=== PATIENT | male | born 1975 | race Caucasian/White ===

== ENCOUNTER 2017-10-06 15:06 | Emergency (ER) | payer SELFPAY ==
--- NOTE | 2017-10-06 16:04 | ERPHSYRPT ---
- History of Present Illness Time Seen by Provider: 10/06/17 15:59 Source: patient Exam Limitations: no limitations Patient Subjective Stated Complaint: pt co metal in upper lip today while using a hammer. pt states he used a magant and lip stuck to magant, Triage Nursing Assessment: pt alert, resp easy, skin w/d/p . has puncture wound to right upper lip Physician History: The patient is a 40-year-old male complaining that a piece of metal was dislodged from a hammer this morning at work causing it to strike him in the upper lip, causing a laceration and impalement of the small piece of metal in his upper lip. He went to a [employer] store and applied a magnet to his upper lip to confirm that the metal piece was in his lip. His lip is swollen and tender. His last tetanus vaccination was several years ago. He takes no medicines. Timing/Duration: today Quality: painful Severity: mild Location: face (upper lip) Possible Causes: other (metal ) Allergies/Adverse Reactions: No Known Drug Allergies Allergy (Unverified 10/06/17 15:16) Hx Tetanus, Diphtheria Vaccination/Date Given: Yes Hx Influenza Vaccination/Date Given: No Hx Pneumococcal Vaccination/Date Given: No Immunizations Up to Date: Yes - Review of Systems Constitutional: No Fever, No Chills Eyes: No Symptoms Ears, Nose, & Throat: No Symptoms Respiratory: No Cough, No Dyspnea Cardiac: No Chest Pain, No Edema, No Syncope Abdominal/Gastrointestinal: No Abdominal Pain, No Nausea, No Vomiting, No Diarrhea Genitourinary Symptoms: No Dysuria Musculoskeletal: No Back Pain, No Neck Pain Skin: Other (embedded metal in upper lip.) Neurological: No Dizziness, No Focal Weakness, No Sensory Changes Psychological: No Symptoms Endocrine: No Symptoms Hematologic/Lymphatic: No Symptoms Immunological/Allergic: No Symptoms All Other Systems: Reviewed and Negative - Past Medical History Pertinent Past Medical History: No - Past Surgical History Past Surgical History: Yes Other Surgical History: arm - Social History Smoking Status: Current some day smoker Exposure to second hand smoke: Yes Drug Use: none Patient Lives Alone: No - Nursing Vital Signs Nursing Vital Signs: Initial Vital Signs Pulse Rate 75 10/06/17 16:12 Blood Pressure 116/85 10/06/17 16:12 O2 Sat by Pulse Oximetry 98 10/06/17 16:12 Pain Scale Pain Intensity 3 - Physical Exam General Appearance: no apparent distress, alert Eye Exam: PERRL/EOMI, eyes nml inspection Ears, Nose, Throat Exam: normal ENT inspection, pharynx normal, moist mucous membranes Neck Exam: normal inspection, non-tender, supple, full range of motion Respiratory Exam: normal breath sounds, lungs clear, No respiratory distress Cardiovascular Exam: regular rate/rhythm, normal heart sounds Gastrointestinal/Abdomen Exam: soft, mass, No tenderness Rectal Exam: not done Back Exam: normal inspection, normal range of motion, No CVA tenderness, No vertebral tenderness Extremity Exam: normal inspection, normal range of motion Neurologic Exam: alert, oriented x 3, cooperative, normal mood/affect, sensation nml, No motor deficits Skin Exam: other (small 0.3 cm lac to right side of upper lip; tenderness; swelling.) SpO2 Interpretation: normal Oxygen Delivery: Room Air - Progress Progress: improved Progress Note: 10/06/17 16:23 The steel metal fragment from a hammer was located on the inside of the upper lip just below the surface of the mucosal tissue. It was readily visible as a dark spot that was movable. A magnet easily tugged at the steel through the tissue. Without local anesthetic a small opening was produced in the tissue over the steel fragment with a 10 blade scalpel. A magnet was then used to easily pulled the steel fragment through the incised laceration. The size of the steel fragment was 2.5 x 5 mm. The patient tolerated the procedure well bleeding was minimal. The patient was given a tetanus vaccination. 10/06/17 16:25 Counseled pt/family regarding: diagnosis - Departure Time of Disposition: 16:23 Departure Disposition: Home Clinical Impression: History of retained foreign body fully removed Condition: Stable Critical Care Time: No Referrals: DOCTOR,NO FAMILY [Primary Care Provider] - Additional Instructions: You had a small steel fragment removed from the inside of your upper lip. You were given a tetanus vaccination in the ER. Take Augmentin 875 one tablet 2 times a day for 10 days. Take ibuprofen or Tylenol as needed for pain. Follow- up as needed. Prescriptions: Amoxicillin/Potassium Clav [Augmentin 875-125 Tablet] 875 mg PO BID #20 tablet
[2017-10-06] MEDS ORDERED: Adacel Vial IM ONE ×2 (16:29→16:34)
[2017-10-06 16:48] VITALS: BP 106/62; PULSE 88; O2SAT 99
== END 2017-10-06 16:49 | disposition home or self-care (01) ==
LOC: ED 15:06
PROC: 0CC Mouth and Throat, Extirpation (ICD-10-PCS; principal; 2017-10-06)
DX: S01.521A Laceration with foreign body of lip, initial encounter (principal); W45.8XXA Other foreign body or object entering through skin, initial encounter; W27.8XXA Contact with other nonpowered hand tool, initial encounter; Y93.89 Activity, other specified; Y92.9 Unspecified place or not applicable; Y99.0 Civilian activity done for income or pay
CPT/HCPCS: 10120; 90471; 90715; 96372; 99284

== ENCOUNTER 2021-10-30 21:21 | Emergency (ER) | payer OTHER ==
--- NOTE | 2021-10-30 21:57 | ERPHSYRPT ---
- History of Present Illness Time Seen by Provider: 10/30/21 21:51 Source: patient Exam Limitations: no limitations Patient Subjective Stated Complaint: pt was riding a horse and was bucked off of the horse, states he lost consciousness monentarily, and then saw the horses hoof coming down on side of head. pt has an ear laceration and back and head pain. Triage Nursing Assessment: pt is alert and oriented, pain os 3/10 in head Physician History: Patient is a 45-year-old male presents to our ED status post trauma. Patient states he has been drinking alcohol all day. Patient was on a horse. The horse bucked him off. Patient states he fell onto his head. He admits to transient loss of consciousness. The horse then stepped on his left ear and lacerated his ear. Patient now complains of pain to his neck and his low back. Symptoms are constant. Symptoms are moderate in intensity. Palpation and movement reproduce pain. Pain improved with rest. He states he is otherwise healthy. No other complaints at this time. Portions of this note were created with voice recognition technology. There may be grammatical, spelling, punctuation or sound alike errors Timing/Duration: today Severity: mild Modifying Factors: Improves With: nothing Associated Symptoms: denies symptoms, No nausea, No vomiting, No shortness of breath, No headaches Allergies/Adverse Reactions: No Known Drug Allergies Allergy (Verified 10/30/21 21:33) Hx Tetanus, Diphtheria Vaccination/Date Given: Yes Hx Influenza Vaccination/Date Given: No Hx Pneumococcal Vaccination/Date Given: No Travel Risk - International Travel Have you traveled outside of the country in past 3 weeks: No - Coronavirus Screening Are you exhibiting any of the following symptoms?: No Close contact with a COVID-19 positive Pt in past 14-21 Days: No - Vaccine Status Have you recieved a Covid-19 vaccination: No - Review of Systems Constitutional: No Symptoms, No Fever, No Chills Eyes: No Symptoms Ears, Nose, & Throat: No Symptoms Respiratory: No Symptoms, No Cough, No Dyspnea Cardiac: No Symptoms, No Chest Pain, No Edema, No Syncope Abdominal/Gastrointestinal: No Symptoms, No Abdominal Pain, No Nausea, No Vomiting, No Diarrhea Genitourinary Symptoms: No Symptoms, No Dysuria Musculoskeletal: No Symptoms, No Back Pain, No Neck Pain Skin: No Symptoms, No Rash Neurological: No Symptoms, No Dizziness, No Focal Weakness, No Sensory Changes Psychological: No Symptoms Endocrine: No Symptoms Hematologic/Lymphatic: No Symptoms Immunological/Allergic: No Symptoms All Other Systems: Reviewed and Negative - Past Medical History Pertinent Past Medical History: No - Past Surgical History Past Surgical History: Yes Other Surgical History: arm - Social History Smoking Status: Current some day smoker Exposure to second hand smoke: Yes Drug Use: none Patient Lives Alone: No - Nursing Vital Signs Nursing Vital Signs: Initial Vital Signs Temperature 97.9 F 10/30/21 21:25 Pulse Rate 121 H 10/30/21 21:25 Respiratory Rate 18 10/30/21 21:25 Blood Pressure 179/126 10/30/21 21:25 O2 Sat by Pulse Oximetry 95 10/30/21 21:25 Pain Scale Pain Intensity 5 - Physical Exam General Appearance: no apparent distress, alert Eye Exam: PERRL/EOMI, eyes nml inspection Ears, Nose, Throat Exam: normal ENT inspection, TMs normal, pharynx normal, moist mucous membranes, other (Left ear with a 1 x 1 cm flap of cartilage hanging from a small bridge of skin.) Neck Exam: normal inspection, non-tender, supple, full range of motion Respiratory Exam: normal breath sounds, lungs clear, No respiratory distress Cardiovascular Exam: regular rate/rhythm, normal heart sounds, normal peripheral pulses Gastrointestinal/Abdomen Exam: soft, normal bowel sounds, No tenderness, No mass Back Exam: normal inspection, normal range of motion, No CVA tenderness, No vertebral tenderness Extremity Exam: normal inspection, normal range of motion, pelvis stable Neurologic Exam: alert, oriented x 3, cooperative, normal mood/affect, nml cerebellar function, nml station & gait, sensation nml, No motor deficits Skin Exam: normal color, warm, dry, No rash Lymphatic Exam: No adenopathy SpO2 Interpretation: normal SpO2: 95 O2 Delivery: Room Air Procedures - Laceration/Wound Repair Left Ear Time of Procedure: 22:00 Wound Location: Left (Left ear) Wound Length (cm): 2 Wound's Depth, Shape: superficial Wound Explored: clean Irrigated: Yes Hibiclens Prep: Yes Wound Debrided: No debridement performed Wound Repaired With: sutures Suture Size/Type: 6-0, nylon Number of Sutures: 5 Layer Closure?: No Sterile Dressing Applied?: Yes Sling Applied?: Yes Progress: Patient tolerated procedure well. No complications. 10/31/21 06:16 - Course Nursing assessment & vital signs reviewed: Yes - CT Exams Chest CT Interpretation: Tele-radiologist Report (Small sliding hiatal hernia no evidence of acute pulmonary disease. No acute mediastinal vascular pulmonary or chest wall injury) Other CT Interpretation: Tele-radiologist Report (CT orbits without contrast shows displaced right nasal fracture of uncertain age. Otherwise unremarkable) Head CT Interpretation: Tele-radiologist Report (CT head without contrast mild left maxillary sinus disease.) Cervical Spine CT Interpretation: Tele-radiologist Report (No acute C-spine findings.) Lumbar Spine CT Interpretation: Tele-radiologist Report (Multilevel facet arthropathy. No evidence of acute lumbar fracture or spine injury. Moderate L5-S1 degenerative disc disease.) Abdomen/Pelvis CT Interpretation: Tele-radiologist Report (No acute abdominal or pelvic visceral or vascular injury. Findings concerning for bladder outlet obstruction) Ordered Tests: Active Orders 24 hr Category Date Time Status IV Insertion STAT Care 10/30/21 21:48 Active ABDOMEN AND PELVIS W CONTRAST [CT] Stat Exams 10/30/21 21:47 Taken CERVICAL SPINE WO CONTRAST [CT] Stat Exams 10/30/21 21:45 Taken CHEST WITH CONTRAST [CT] Stat Exams 10/30/21 21:48 Taken FACIAL BONES WO CONTRAST [CT] Stat Exams 10/30/21 21:45 Taken HEAD WITHOUT CONTRAST [CT] Stat Exams 10/30/21 21:45 Taken RECONSTRUCTION [CT] Routine Exams 10/31/21 06:10 Ordered RECONSTRUCTION [CT] Stat Exams 10/30/21 21:46 Taken Medication Summary Generic Name Dose Route Start Last Admin Trade Name Freq PRN Reason Stop Dose Admin Nicotine 21 mg 10/31/21 03:00 10/31/21 03:05 Nicotine 21 Mg/Patch Patch TOP 11/30/21 02:59 21 mg Q24H SCOTT Administration Discontinued Medications Generic Name Dose Route Start Last Admin Trade Name Freq PRN Reason Stop Dose Admin Cephalexin HCl 500 mg 10/31/21 03:05 10/31/21 03:19 Cephalexin Mh500 Mg Capsule PO 10/31/21 03:06 500 mg STAT ONE Administration Cephalexin HCl Confirm 10/31/21 03:18 Cephalexin Mh500 Mg Capsule Administered 10/31/21 03:19 Dose 500 mg .ROUTE .STK-MED ONE Cyclobenzaprine HCl 10 mg 10/31/21 02:16 10/31/21 02:20 Cyclobenzaprine Hcl 10 Mg Tablet PO 10/31/21 02:17 10 mg STAT ONE Administration Cyclobenzaprine HCl Confirm 10/31/21 02:19 Cyclobenzaprine Hcl 10 Mg Tablet Administered 10/31/21 02:20 Dose 10 mg .ROUTE .STK-MED ONE Morphine Sulfate Confirm 10/30/21 23:31 Morphine Sulfate 4 Mg/Ml Injection Administered 10/30/21 23:32 Dose 4 mg .ROUTE .STK-MED ONE Morphine Sulfate 4 mg 10/30/21 23:33 10/30/21 23:58 Morphine Sulfate 4 Mg/Ml Injection IV 10/30/21 23:34 4 mg STAT ONE Administration Morphine Sulfate 2 mg 10/31/21 00:27 10/31/21 00:32 Morphine Sulfate 2 Mg/Ml Inj IV 10/31/21 00:28 2 mg STAT ONE Administration Morphine Sulfate Confirm 10/31/21 00:31 Morphine Sulfate 2 Mg/Ml Inj Administered 10/31/21 00:32 Dose 2 mg .ROUTE .STK-MED ONE Morphine Sulfate 4 mg 10/31/21 04:33 10/31/21 04:37 Morphine Sulfate 4 Mg/Ml Injection IV 10/31/21 04:34 4 mg STAT ONE Administration Morphine Sulfate Confirm 10/31/21 04:37 Morphine Sulfate 4 Mg/Ml Injection Administered 10/31/21 04:38 Dose 4 mg .ROUTE .STK-MED ONE Ondansetron HCl Confirm 10/30/21 23:31 Ondansetron Hcl 4 Mg/2 Ml Vial Administered 10/30/21 23:32 Dose 4 mg .ROUTE .STK-MED ONE Ondansetron HCl 4 mg 10/30/21 23:56 10/30/21 23:58 Ondansetron Hcl 4 Mg/2 Ml Vial IV 10/30/21 23:57 4 mg STAT ONE Administration - Progress Progress: improved Progress Note: 45-year-old male thrown off of a horse. CT head C-spine chest abdomen pelvis and lumbar spine are negative. We later added 3D reconstruction view of thoracic spine which is pending. Additionally patient has a significant laceration to his left ear which will need to be repaired by either ENT or plastic surgery. We are awaiting transfer. Patient endorsed to Dr. Julian will follow up on 3D recon view of the thoracic spine and oversee transfer to either plastic surgery or ENT for definitive left ear repair. Portions of this note were created with voice recognition technology. There may be grammatical, spelling, punctuation or sound alike errors 10/31/21 07:14 Counseled pt/family regarding: lab results, diagnosis, need for follow-up, rad results - Departure Departure Disposition: Home Clinical Impression: Small sliding hiatal hernia, Bladder outlet obstruction, Displaced right nasal fracture, Left maxillary sinus disease, Cervical spine arthritis, Laceration of ear Condition: Stable Critical Care Time: No Referrals: [facility]TO[facility]TE [facility] [Primary Care Provider] - Follow up/PCP as directed
[2021-10-30] MEDS ORDERED: MORPHINE SULFATE 4 MG INJ ONE (23:31)
[2021-10-30] MEDS ORDERED: Zofran 4 MG/2 ML VIAL ONE (23:31)
[2021-10-30] MEDS ORDERED: MORPHINE SULFATE 4 MG INJ IV ONE (23:33)
[2021-10-30] MEDS ORDERED: Zofran 4 MG/2 ML VIAL IV ONE (23:56)
[2021-10-31] MEDS ORDERED: MORPHINE SULFATE 2 MG INJ IV ONE (00:27)
[2021-10-31] MEDS ORDERED: MORPHINE SULFATE 2 MG INJ ONE (00:31)
[2021-10-31] MEDS ORDERED: Cyclobenzaprine 10 MG PO ONE (02:16)
[2021-10-31] MEDS ORDERED: Cyclobenzaprine 10 MG ONE (02:19)
[2021-10-31] MEDS ORDERED: Nicoderm CQ 21 MG TOP SCH (03:00)
[2021-10-31] MEDS ORDERED: KEFLEX 500 MG PO ONE (03:05)
[2021-10-31] MEDS ORDERED: KEFLEX 500 MG ONE (03:18)
[2021-10-31] MEDS ORDERED: MORPHINE SULFATE 4 MG INJ IV ONE ×2 (04:33→08:43)
[2021-10-31] MEDS ORDERED: MORPHINE SULFATE 4 MG INJ ONE ×2 (04:37→08:50)
[2021-10-31 06:13] VITALS: O2SAT 95
[2021-10-31 08:18] VITALS: BP 147/102; PULSE 71
--- NOTE | 2021-10-31 09:11 | XRAY ---
Indication: Pain following fall from horse. Multiple contiguous axial images obtained through the head without contrast. Comparison: None Normal appearing brain parenchyma, ventricles, and bony calvarium. Left maxillary sinus demonstrates tiny fluid leveling. Remaining paranasal sinuses and mastoid air cells are clear. CT facial bones and CT cervical spine reported separately. Impression: Normal CT head without contrast exam. Minimal left maxillary sinus disease. Comment: Preliminary interpretation made by [facility]. No critical discrepancy.
--- NOTE | 2021-10-31 09:13 | XRAY ---
Indication: Pain following fall from horse. Left head and ear laceration. Multiple contiguous axial images obtained through the facial bones. Sagittal and coronal reformatted images obtained. Comparison: None A few bilateral dental amalgams produces beam artifact. Minimally depressed remote appearing right nasal bone fracture. Elsewhere no acute fracture, suspicious bony lesions, or radiopaque foreign body. Orbits including roof, bravo, and floors are intact. Inferior maxillary sinuses demonstrates minimal mucosal thickening, left greater than right. Remaining paranasal sinuses and nasal passages are clear. Incidental bilateral middle turbinate kenny bullosa and minimal nasal septal deviation to the right. Remaining visualized noncontrasted soft tissues are unremarkable. CT head and CT cervical spine reported separately. Impression: Remote appearing right nasal bone fracture and minimal paranasal sinus disease. Remaining CT facial bones negative. Comment: Preliminary interpretation made by [facility]. No critical discrepancy.
--- NOTE | 2021-10-31 09:15 | XRAY ---
Indication: Pain following fall from horse. Multiple contiguous axial images obtained through the cervical spine. Sagittal and coronal reformatted images obtained. Comparison: None Axial images negative for acute fracture, suspicious bony lesions, or spinal canal stenosis. Minimal C4-C5 and C6-C7 degenerative endplate spurring. Facets are symmetric. Sagittal and coronal reformatted images demonstrates normal alignment with minimal C6-C7 degenerative disc space narrowing. No acute compression fracture, subluxation, or jumped facet. Normal appearing craniocervical junction. Visualized noncontrasted soft tissues are unremarkable. CT head and CT chest reported separately. Impression: Minimal C4-C5 and C6-C7 degenerative spurring. Remaining CT cervical spine is negative. Comment: Preliminary interpretation made by [facility]. No critical discrepancy.
--- NOTE | 2021-10-31 09:17 | XRAY ---
Indication: Pain following fall from horse. Multiple contiguous axial images obtained through the chest using 80 cc Isovue 370 contrast. Comparison: None Lungs demonstrates bilateral dependent atelectasis, right greater than left. Mild pulmonary emphysema. No suspicious pulmonary mass, infiltrate, effusion, or pneumothorax. Heart not enlarged. Aorta is normal in course and caliber. No pathologic mediastinal/hilar lymphadenopathy. Bony thorax intact with mild degenerative changes throughout the spine. CT abdomen/pelvis reported separately. Impression: Bilateral dependent atelectasis and pulmonary emphysema. Remaining CT chest with contrast exam is negative. Comment: Preliminary interpretation made by [facility]. No critical discrepancy.
--- NOTE | 2021-10-31 09:19 | XRAY ---
Indication: Pain following fall from horse. Multiple contiguous axial images obtained through the abdomen and pelvis using 80 cc Isovue 370 contrast. Comparison: None CT chest reported separately. Noncontrasted stomach and bowel loops appear nonobstructed. No free fluid/air. Urinary bladder is distended concerning for outlet obstruction versus neurogenic bladder. Remaining liver, gallbladder, pancreas, spleen, adrenal glands, kidneys, ureters, bladder, and aorta are unremarkable. No pathologic retroperitoneal lymphadenopathy. Osseous structures intact with minimal degenerative changes throughout the thoracolumbar spine. No ventral or inguinal hernias. Impression: 1. Distended urinary bladder. Rule out solid obstruction versus neurogenic bladder. 2. Remaining CT abdomen/pelvis with contrast exam is negative. Comment: Preliminary interpretation made by [facility]. No critical discrepancy.
--- NOTE | 2021-10-31 09:22 | XRAY ---
Indication: Pain following fall from horse. Axial, coronal, and sagittal reformatted images of the lumbar spine obtained using raw data from same day CT chest/abdomen/pelvis exam. Comparison: None Axial images negative for acute fracture, suspicious bony lesions, or spinal canal stenosis. Facets are symmetric. Sagittal and coronal reformatted images demonstrates normal alignment with minimal L5-S1 disc space narrowing. No acute compression fracture or subluxation. CT chest/abdomen/pelvis reported separately. Impression: 1. Negative for acute fracture/subluxation. 2. Incidental L5-S1 degenerative disc disease. Comment: Preliminary interpretation made by [facility]. No critical discrepancy.
--- NOTE | 2021-11-01 06:34 | XRAY ---
Indication: Pain following fall from horse. Axial, coronal, and sagittal reformatted images of the thoracic spine obtained using raw data from same day CT chest/abdomen/pelvis exam. Comparison: None Axial images negative for acute fracture, suspicious bony lesions, or spinal canal stenosis. Minimal T6-T10 anterior endplate spurring and tiny T9-T11 Schmorl nodes. Sagittal and coronal reformatted images demonstrates normal alignment with minimal multilevel degenerative disc space narrowing. No acute compression fracture or subluxation. CT chest/abdomen/pelvis reported separately. Impression: 1. Negative for acute fracture/subluxation. 2. Incidental minimal multilevel degenerative changes and tiny Schmorl nodes. Comment: Preliminary interpretation made by [facility]. No critical discrepancy.
== END 2021-10-31 09:09 | disposition short-term general hospital (02) ==
LOC: ED 21:21
DX: S01.312A Laceration without foreign body of left ear, initial encounter (principal); S02.2XXA Fracture of nasal bones, initial encounter for closed fracture; V80.010A Animal-rider injured by fall from or being thrown from horse in noncollision accident, initial encounter; Y93.52 Activity, horseback riding; K44.9 Diaphragmatic hernia without obstruction or gangrene; N32.0 Bladder-neck obstruction; J32.0 Chronic maxillary sinusitis; M47.812 Spondylosis without myelopathy or radiculopathy, cervical region; M54.2 Cervicalgia; M54.50 Low back pain, unspecified; Z72.0 Tobacco use; Z28.310 Unvaccinated for COVID-19
CPT/HCPCS: 12011; 36000; 70450; 70486; 71260; 72125; 74177; 76376; 96374; 96375; 99285; J2270; J2405; A9270-GY

== ENCOUNTER 2022-02-21 16:00 | Emergency (ER) | payer OTHER ==
[2022-02-21] MEDS ORDERED: SUBLIMAZE 100 MCG/2 ML IV ONE (17:48)
[2022-02-21] MEDS ORDERED: Sodium Chloride 0.9% 1000 ML 1,000 ML IV STA (17:48)
[2022-02-21 17:56] LABS: Absolute Neutrophil Ct (ANC) 3.85 x10^3/uL (1.4-6.9); Basophil (Absolute #) 0.03 x10^3/uL (0-0.4); Eosinophil % 0.5 % (0.00-5.0); Eosinophil (Absolute #) 0.03 x10^3/uL (0-0.5); Hematocrit 47.9 % (42-50); Lymphocyte (Absolute #) 1.61 x10^3/uL (1.0-4.6); Lymphocytes % 25.6 % (24.0-44.0); Mean Cell Volume 94.7 fL (78-100); Mean Corpuscular Hemoglobin 31.6 pg (26-32); Mean Corpuscular Hgb Concent. 33.4 g/dL (32-36); Mean Platelet Volume 11.5 fL (7.5-11.0); Monocyte (Absolute #) 0.75 x10^3/uL (0.0-1.3); Monocytes % 11.9 % (0.0-12.0); Platelet Count 230 x10^3/uL (150-450); Red Blood Count 5.06 x10^6/uL (4.1-5.6); Red Cell Distribution Width 12.4 % (11.5-14.0); White Blood Count 6.3 x10^3/uL (4.0-10.5)
[2022-02-21 18:03] LABS: ALBUMIN 4.5 g/dL (3.5-5.0); ALKALINE PHOSPHATASE 89 U/L (38-126); AMYLASE 77 U/L (30-110); ANION GAP 10.6 MEQ/L (5-15); BLOOD UREA NITROGEN 12 mg/dL (9-20); CHLORIDE 97 mmol/L (98-107); Carbon Dioxide 30 mmol/L (22-30); Creatinine 1 0.87 mg/dL (0.66-1.25); EST GLOMERULAR FILTRATION RATE > 60.0 ML/MIN; Glucose 104 mg/dL (74-106); LIPASE 202 U/L (23-300); Potassium 3.9 mmol/L (3.5-5.1); SGOT/AST 41 U/L (17-59); SGPT/ALT 32 U/L (0-50); SODIUM 133 mmol/L (137-145)
[2022-02-21] MEDS ORDERED: Sodium Chloride 0.9% 1000 ML 1,000 ML ONE (18:06)
[2022-02-21] MEDS ORDERED: SUBLIMAZE 100 MCG/2 ML ONE (18:06)
--- NOTE | 2022-02-21 18:33 | ERPHSYRPT ---
- History of Present Illness Historian: patient Exam Limitations: no limitations Patient Subjective Stated Complaint: pt states "I have a hiatal hernia. I can't eat or don't feel like eating." Triage Nursing Assessment: pt ambulated into the er; pt is axo x4; c/o abd pain; pt states 7/10 pain to epigastric region; pt denies V/D; abd flat, soft, tender; hyperactive bowel sounds in all quads; hypertensive Timing/Duration: day(s) (8) Activities at Onset: none Quality: cramping, fullness Abdominal Pain Onset Location: epigastric Severity of Pain-Max: moderate Severity of Pain-Current: moderate Modifying Factors: Improves With: nothing Associated Symptoms: nausea, vomiting Previous symptoms: no prior history Hx Tetanus, Diphtheria Vaccination/Date Given: Yes Hx Influenza Vaccination/Date Given: No Hx Pneumococcal Vaccination/Date Given: No <ASHISH ZHANG - Last Filed: 02/21/22 18:28> <MARVIN DAVIDSON - Last Filed: 02/21/22 19:58> - History of Present Illness Time Seen by Provider: 02/21/22 17:05 Physician History: Patient is a 46-year-old white male who for 8 days has had upper abdominal pain the pain is in the epigastric area it started last Friday. He had an injury af ter being thrown from a horse approximately a month ago and at that time was diagnosed with an incidental finding of a hiatal hernia presently he has severe nausea he has had vomiting he is lost his appetite and he has pain. He denies any fever or chills and he denies any diarrhea. He also complains that he cannot sleep. (ASHISH ZHANG) Allergies/Adverse Reactions: No Known Drug Allergies Allergy (Verified 02/21/22 16:55) Travel Risk - International Travel Have you traveled outside of the country in past 3 weeks: No - Coronavirus Screening Are you exhibiting any of the following symptoms?: No Close contact with a COVID-19 positive Pt in past 14-21 Days: No - Vaccine Status Have you recieved a Covid-19 vaccination: No <ASHISH ZHANG - Last Filed: 02/21/22 18:28> - Review of Systems Constitutional: No Fever, No Chills Eyes: No Symptoms Ears, Nose, & Throat: No Symptoms Respiratory: No Cough, No Dyspnea Cardiac: No Chest Pain, No Edema, No Syncope Abdominal/Gastrointestinal: Abdominal Pain, Nausea, Vomiting, No Diarrhea Genitourinary Symptoms: No Dysuria Musculoskeletal: No Back Pain, No Neck Pain Skin: No Rash Neurological: No Dizziness, No Focal Weakness, No Sensory Changes Psychological: No Symptoms Endocrine: No Symptoms All Other Systems: Reviewed and Negative <ELANASHISH - Last Filed: 02/21/22 18:28> - Review of Systems Constitutional: No Fever, No Chills Eyes: No Symptoms Ears, Nose, & Throat: No Symptoms Respiratory: No Cough, No Dyspnea Cardiac: No Chest Pain, No Edema, No Syncope Abdominal/Gastrointestinal: No Abdominal Pain, No Nausea, No Vomiting, No Diarrhea Genitourinary Symptoms: No Dysuria Musculoskeletal: No Back Pain, No Neck Pain Skin: No Rash Neurological: No Dizziness, No Focal Weakness, No Sensory Changes Psychological: No Symptoms Endocrine: No Symptoms All Other Systems: Reviewed and Negative <MARVIN DAVIDSON - Last Filed: 02/21/22 19:58> - Past Medical History Pertinent Past Medical History: Yes GI Medical History: Hernia - Past Surgical History Past Surgical History: Yes Other Surgical History: rt arm - Social History Smoking Status: Current some day smoker Exposure to second hand smoke: Yes Drug Use: none Patient Lives Alone: No <ELANASHISH Last Filed: 02/21/22 18:28> - Physical Exam General Appearance: no apparent distress, alert Eye Exam: PERRL/EOMI, eyes nml inspection Ears, Nose, Throat Exam: normal ENT inspection, pharynx normal, moist mucous membranes Neck Exam: normal inspection, non-tender, supple, full range of motion Respiratory Exam: normal breath sounds, lungs clear, No respiratory distress Cardiovascular Exam: regular rate/rhythm, normal heart sounds Gastrointestinal/Abdomen Exam: tenderness (Epigastric area), guarding, No mass, No rebound Back Exam: normal inspection, normal range of motion, No CVA tenderness, No vertebral tenderness Extremity Exam: normal inspection, normal range of motion, pelvis stable Neurologic Exam: alert, oriented x 3, cooperative, normal mood/affect, nml cerebellar function, sensation nml, No motor deficits Skin Exam: normal color, warm, dry SpO2: 95 <ASHISH ZHANG - Last Filed: 02/21/22 18:28> - Nursing Vital Signs Nursing Vital Signs: Initial Vital Signs Temperature 98.3 F 02/21/22 16:55 Pulse Rate 81 02/21/22 16:55 Respiratory Rate 14 02/21/22 16:55 Blood Pressure 155/93 02/21/22 16:55 O2 Sat by Pulse Oximetry 97 02/21/22 16:55 Pain Scale Pain Intensity 0 - Course Nursing assessment & vital signs reviewed: Yes <ASHISH ZHANG - Last Filed: 02/21/22 18:28> Ordered Tests: Active Orders 24 hr Category Date Time Status IV Insertion STAT Care 02/21/22 17:48 Active ABDOMEN AND PELVIS W CONTRAST [CT] Stat Exams 02/21/22 17:49 Taken AMYLASE Stat Lab 02/21/22 17:00 Completed CBC W DIFF Stat Lab 02/21/22 17:00 Completed CMP Stat Lab 02/21/22 17:00 Completed LIPASE Stat Lab 02/21/22 17:00 Completed Lactic Acid Stat Lab 02/21/22 17:52 Completed Manual Differential NC Stat Lab 02/21/22 17:00 Completed UA W/RFX CULTURE Stat Lab 02/21/22 19:44 Ordered Medication Summary Discontinued Medications Generic Name Dose Route Start Last Admin Trade Name Herbq PRN Reason Stop Dose Admin Fentanyl Citrate 100 mcg 02/21/22 17:48 02/21/22 18:07 Fentanyl Citrate 100 Mcg/2 Ml* Vial IV 02/21/22 17:49 100 mcg STAT ONE Administration Fentanyl Citrate Confirm 02/21/22 18:06 Fentanyl Citrate 100 Mcg/2 Ml* Vial Administered 02/21/22 18:07 Dose 100 mcg .ROUTE .STK-MED ONE Sodium Chloride 1,000 mls @ 999 mls/hr 02/21/22 17:48 02/21/22 19:16 Sodium Chloride 0.9% 1000 Ml IV 02/21/22 18:48 Infused .Q1H1M STA Infusion Sodium Chloride Confirm 02/21/22 18:06 Sodium Chloride 0.9% 1000 Ml Administered 02/21/22 18:07 Dose 1,000 mls @ ud .ROUTE .STK-MED ONE Lab/Rad Data: Laboratory Result Diagrams 02/21/22 17:00 02/21/22 17:00 Laboratory Results 02/21/22 02/21/22 02/21/22 Range/Units 17:52 17:00 17:00 WBC 6.3 (4.0-10.5) x10^3/uL RBC 5.06 (4.1-5.6) x10^6/uL Hgb 16.0 (12.5-18.0) g/dL Hct 47.9 (42-50) % MCV 94.7 (78-100) fL MCH 31.6 (26-32) pg MCHC 33.4 (32-36) g/dL RDW 12.4 (11.5-14.0) % Plt Count 230 (150-450) x10^3/uL MPV 11.5 H (7.5-11.0) fL Gran % 61.0 (36.0-66.0) % Immature Gran % (Auto) 0.5 H (0.00-0.4) % Nucleat RBC Rel Count 0.0 (0.00-0.1) % Eos # (Auto) 0.03 (0-0.5) x10^3/uL Immature Gran # (Auto) 0.03 (0.00-0.03) x10^3u/L Absolute Lymphs (auto) 1.61 (1.0-4.6) x10^3/uL Absolute Monos (auto) 0.75 (0.0-1.3) x10^3/uL Absolute Nucleated RBC 0.00 (0.00-0.01) x10^3u/L Lymphocytes % 25.6 (24.0-44.0) % Monocytes % 11.9 (0.0-12.0) % Eosinophils % 0.5 (0.00-5.0) % Basophils % 0.5 (0.0-0.4) % Absolute Granulocytes 3.85 (1.4-6.9) x10^3/uL Basophils # 0.03 (0-0.4) x10^3/uL Sodium 133 L (137-145) mmol/L Potassium 3.9 (3.5-5.1) mmol/L Chloride 97 L (98-107) mmol/L Carbon Dioxide 30 (22-30) mmol/L Anion Gap 10.6 (5-15) MEQ/L BUN 12 (9-20) mg/dL Creatinine 0.87 (0.66-1.25) mg/dL Estimated GFR > 60.0 ML/MIN Glucose 104 (74-106) mg/dL Lactic Acid 0.9 (0.4-2.0) Calcium 9.0 (8.4-10.2) mg/dL Total Bilirubin 0.80 (0.2-1.3) mg/dL AST 41 (17-59) U/L ALT 32 (0-50) U/L Alkaline Phosphatase 89 (38-126) U/L Serum Total Protein 8.0 (6.3-8.2) g/dL Albumin 4.5 (3.5-5.0) g/dL Amylase 77 (30-110) U/L Lipase 202 (23-300) U/L - Progress Progress: unchanged <ASHISH ZHANG - Last Filed: 02/21/22 18:28> - Progress Counseled pt/family regarding: lab results, diagnosis, need for follow-up, rad results <MARVIN DAVIDSON - Last Filed: 02/21/22 19:58> - Progress Progress Note: 02/21/22 19:[address] Davidson at approximately 7 PM. Patient initially seen and evaluated by Dr. Zhang CT scan reveals wall thickening and increased mucosal enhancement involving the distal stomach and proximal duodenum likely due to peptic ulcer disease or gastritis and duodenitis. Diverticulosis without evidence of diverticulitis Patient received a dose of pantoprazole in our ED. A prescription for the same was Forwarded the patient's pharmacy. Patient may require an outpatient scope to further assess the possibility of peptic ulcer disease Patient has never had a colonoscopy. Patient advised that He is due for colonoscopy Portions of this note were created with voice recognition technology. There may be grammatical, spelling, punctuation or sound alike errors 02/21/22 19:55 (MARVIN DAVIDSON) - Departure Departure Disposition: Home Critical Care Time: No <ASHISH ZHANG - Last Filed: 02/21/22 18:28> <MARVIN DAVIDSON - Last Filed: 02/21/22 19:58> - Departure Clinical Impression: Abdominal pain, Diverticulosis, Peptic ulcer disease, Gastritis, Duodenitis Condition: Stable Referrals: [facility] [Primary Care Provider] - Follow up/PCP as directed Additional Instructions: Discharge/Care Plan VINNIEANTONIETAYARELIS was seen on 02/21/22 in the Emergency Room. The patient was counseled regarding Diagnosis,Lab results, Imaging studies, need for follow up and when to return to the Emergency Room. Prescriptions given: Discharge Note I have spoken with the patient and/or caregivers. I have explained the patient's condition, diagnosis and treatment plan based on the information available to me at this time. I have answered the patient's and/or caregiver's questions and addressed any concerns. The patient and/or caregivers have as good understanding of the patient's diagnosis, condition and treatment plan as can be expected at this point. The vital signs have been stable. The patient's condition is stable and appropriate for discharge from the emergency department. The patient will pursue further outpatient evaluation with the primary care physician or other designated or consulting physician as outlined in the discharge instructions. The patient and/or caregivers are agreeable to this plan of care and follow-up instructions have been explained in detail. The patient and/or caregivers have received these instruction. The patient/and or caregivers are aware that any significant change in condition or worsening of symptoms should prompt an immediate return to this or the closest emergency department or call 911. Prescriptions: PANTOPRAZOLE 40 mg Tablet [Protonix 40MG Tablet] 40 mg PO QAM 14 Days #14 tab
[2022-02-21] MEDS ORDERED: PROTONIX 40 MG IV IV ONE ×2 (19:45→19:59)
[2022-02-21 19:58] LABS: Eosinophil 1 % (0.00-3.0); Lymphocytes 21 % (24-44); Monocyte 8 % (0.0-12.0); Platelet Estimate NORMAL (NORMAL); Total Cells Counted 100
[2022-02-21 20:05] VITALS: BP 99/63; PULSE 105; O2SAT 97
[2022-02-21 20:38] LABS: Bacteria RARE /HPF (NEGATIVE)
[2022-02-21 20:39] LABS: Appearance CLEAR (CLEAR); Bilirubin NEGATIVE (NEGATIVE); Glucose NEGATIVE (NEGATIVE); Ketones MODERATE-40 (NEGATIVE); Nitrite NEGATIVE (NEGATIVE); Protein,Urine Dip NEGATIVE (Negative); RBC NEGATIVE Ery/ul (0-5); Urobilinogen 0.2 mg/dL (0-1)
[2022-02-21 20:40] LABS: Dipstick done @ ? MAIN LAB; Urine Cultured Indicated? NO
--- NOTE | 2022-02-24 15:37 | XRAY ---
Exam: CT of the abdomen and pelvis with IV contrast from 02/21/2022. CTDI: 4.94 mGy Comparison: CT of the abdomen and pelvis with IV contrast from 10/30/2021. Indication: 46-year-old male with nausea, abdominal pain, loss of appetite. Technique: Post-IV contrast axial images were obtained through the abdomen and pelvis during automated injection of 80 cc of Isovue-370 contrast material. Delayed images were obtained as well. Reconstructed coronal and sagittal images were created and reviewed. Findings: The visualized lung bases reveal minimal compression atelectatic changes within both posterior lung sulci, right greater than left. There also appears to be some minimal scarring versus atelectasis at the lateral left lung base. There appears to be a tiny subpleural 3 mm nodule posterolaterally at the left lung base on axial image #8 which I believe is unchanged in retrospect from 10/30/2021. On a size criteria, this is not significant. The liver is of unremarkable size. There is a tiny 3 mm low-attenuation lesion within the inferior aspect of the right hepatic lobe on axial image #26. This is too small to characterize, but statistically likely represents a small cyst. No other focal hepatic mass or intrahepatic biliary duct distention is seen. The gallbladder is distended and reveals no dense calcifications. The spleen is of normal size and reveals no mass. No gross abnormality of the pancreas is seen. The adrenal glands appear of normal size and configuration. The kidneys are of normal size and shape. No renal calculi, renal mass, or hydronephrosis is seen. Both kidneys function on delayed images. Portions of both ureters are opacified with contrast on the delayed images and appear unremarkable. No urinary bladder stone is seen within the urinary bladder on the portal venous phase. The abdominal aorta appears of normal diameter without aneurysm or abnormal retroperitoneal lymphadenopathy. No free intraperitoneal air or bowel containing ventral abdominal wall hernia is seen. There is a tiny fat-containing umbilical hernia seen on midline sagittal image #97 representing no change from 10/30/2021. There is some mild mucosal enhancement within the distal stomach and proximal duodenum. I also note some scattered fluid-filled nondilated small bowel loops. Consider gastroenteritis. There is no evidence of bowel obstruction. I note a few uncomplicated diverticula within the distal descending colon and sigmoid colon. No evidence of diverticulitis is seen. I see no definite findings of appendicitis within the right lower quadrant. The pelvis reveals a moderately distended urinary bladder, but not to the degree seen on the prior CT study from 10/30/2021. The urinary bladder measures a maximum of 9.75 cm in width on coronal image #73 and 10.8 cm in AP dimension and 8.8 cm in craniocaudal dimension on sagittal image #100. No other definite urinary bladder abnormality is seen. The seminal vesicles and prostate gland appear unremarkable. A few small calcified phleboliths are seen within lower right pelvis. No free intraperitoneal fluid or abnormal pelvic lymphadenopathy is seen. The skeleton reveals no acute fracture or aggressive bone lesion. Mild degenerative changes are seen within the lower thoracic and lower lumbar spine. There is minimal relative narrowing of the L5-S1 interspace height, but this is unchanged. Impression: 1. I note some mucosal enhancement within the distal stomach and proximal duodenum, as well as scattered fluid within non-distended small bowel loops. Consider gastroenteritis. 2. Distal left colon mild diverticulosis without evidence of diverticulitis. 3. The urinary bladder again appears moderately distended, but not to the same degree seen on 10/30/2021. Correlate clinically. 4. Some other incidental findings are seen, as discussed above. No other acute process is seen.
== END 2022-02-21 20:11 | disposition home or self-care (01) ==
LOC: ED 16:00
DX: K57.90 Diverticulosis of intestine, part unspecified, without perforation or abscess without bleeding (principal); K27.9 Peptic ulcer, site unspecified, unspecified as acute or chronic, without hemorrhage or perforation; K29.70 Gastritis, unspecified, without bleeding; K29.80 Duodenitis without bleeding; R10.13 Epigastric pain; R11.2 Nausea with vomiting, unspecified; Z28.310 Unvaccinated for COVID-19; Z72.0 Tobacco use
CPT/HCPCS: 36000; 36415; 74177; 80053; 81015; 82150; 83605; 83690; 85025; 96360; 96374; 96375; 99284; J3010